=== PATIENT | male | born 1975 | race Caucasian/White ===

== ENCOUNTER 2018-06-27 12:55 | Emergency (ER) | payer OTHER ==
[2018-06-27 13:03] VITALS: BP 151/103; PULSE 74; TEMP 97.9; BMI 34.9
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
== END 2018-06-27 13:46 | disposition home or self-care (01) ==
LOC: JERFT 12:55
DX: S39.012A Strain of muscle, fascia and tendon of lower back, initial encounter (principal); X58.XXXA Exposure to other specified factors, initial encounter; Y93.89 Activity, other specified; Y92.89 Other specified places as the place of occurrence of the external cause; G89.29 Other chronic pain
CPT/HCPCS: 99281-25